=== PATIENT | male | born 1975 | race Native Hawaiian/Other Pacific Islander ===

== ENCOUNTER 2020-02-14 13:35 | Emergency (ER) | payer OTHER ==
[~2020-02-14] VITALS: Ht 180.3 cm; Wt 86.2 kg
[2020-02-14 14:26] LABS: PLATELET COUNT 270 K/uL (142-355)
[2020-02-14 14:35] LABS: POTASSIUM 5.4 mmol/L (3.6-5.2)
[2020-02-14 16:23] VITALS: BP 122/76; TEMP 97.7
== END 2020-02-14 16:25 | disposition home or self-care (01) ==
LOC: ED 13:35
PROVIDERS: Hospitalist
DX: F41.8 Other specified anxiety disorders (principal); F12.10 Cannabis abuse, uncomplicated; F10.20 Alcohol dependence, uncomplicated
CPT/HCPCS: 80053; 80307; 80320; 80329; 81000; 85027; 96372; 99283; J2060; J2405